=== PATIENT | female | born 1990 | race Caucasian/White ===

== ENCOUNTER 2017-04-15 19:19 | Emergency (ER) | payer MEDICAID ==
[~2017-04-15] VITALS: Ht 157.5 cm; Wt 49.9 kg
--- NOTE | 2017-04-15 19:30 | NUR ---
PT WITH C/O BACK PAIN ; NO MEDS NO HX; DR CORNELIUS TO EXAM
[2017-04-15] MEDS ORDERED: KETOROLAC TROMETHAMINE 30 MG INJ IM ONE (20:15)
[2017-04-15] MEDS ORDERED: OXYCODONE/APAP 5-325 MG TABLET PO ONE (20:15)
[2017-04-15] MEDS ORDERED: LORAZEPAM 0.5 MG TABLET PO ONE (20:15)
[2017-04-15] MEDS ORDERED: KETOROLAC TROMETHAMINE 30 MG INJ ONE (21:08)
[2017-04-15] MEDS ORDERED: LORAZEPAM 0.5 MG TABLET ONE ×2 (21:08→21:29)
[2017-04-15] MEDS ORDERED: OXYCODONE/APAP 5-325 MG TABLET ONE (21:09)
--- NOTE | 2017-04-15 22:30 | NUR ---
Patient discharged to home in stable conditon. Written and verbal after care instructions given. Patient verbalizes understanding of instructions.
[2017-04-15 22:38] VITALS: BP 102/60
== END 2017-04-15 22:39 | disposition home or self-care (01) ==
LOC: ER 19:20
DX: M62.830 Muscle spasm of back (principal); M54.5 Low back pain
CPT/HCPCS: 71010; 72072; 72100; 96372; 99284; A4663; J1885